=== PATIENT | female | born 1960 | race Caucasian/White ===

== ENCOUNTER → 2024-07-01 11:00 | Outpatient (REF) | payer OTHER, SELFPAY | LOC: HWWDC 11:00 | PROVIDERS: ATTENDING PHYSICIAN Family Medicine | DX: Z12.31 Encounter for screening mammogram for malignant neoplasm of breast (principal) | CPT/HCPCS: 77063; 77067 ==

== ENCOUNTER 2024-10-20 06:15 | Day surgery (SDC) | payer OTHER, SELFPAY | END 2024-10-20 14:56 | disposition home or self-care (01) | LOC: GI 06:15 | PROVIDERS: ATTENDING PHYSICIAN Surgery | DX: Z12.11 Encounter for screening for malignant neoplasm of colon (principal); R19.5 Other fecal abnormalities; K57.30 Diverticulosis of large intestine without perforation or abscess without bleeding; D12.3 Benign neoplasm of transverse colon | CPT/HCPCS: 45380; 88305 ==